=== PATIENT | female | born 1980 | race Caucasian/White ===

== ENCOUNTER 2018-12-21 17:33 | Emergency (ER) | payer SELFPAY ==
[~2018-12-21] VITALS: Ht 170.2 cm; Wt 73.0 kg
[2018-12-21 17:34] VITALS: BP 116/77
[2018-12-21] MEDS ORDERED: HYDROCODONE/ACETAMINOPHEN 5/325MG TABLET PO ONE (18:00)
[2018-12-21] MEDS ORDERED: IBUPROFEN 600MG TABLET PO ONE (18:00)
== END 2018-12-21 20:00 | disposition left against medical advice (07) ==
LOC: ER 17:33
DX: M79.672 Pain in left foot (principal); M25.572 Pain in left ankle and joints of left foot; V03.99XA Pedestrian with other conveyance injured in collision with car, pick-up truck or van, unspecified whether traffic or nontraffic accident, initial encounter; Y93.55 Activity, bike riding; Y92.9 Unspecified place or not applicable
CPT/HCPCS: 73610; 73630; 99283

== ENCOUNTER 2019-03-30 22:39 | Emergency (ER) | payer OTHER ==
[~2019-03-30] VITALS: Ht 160 cm; Wt 68.0 kg
[2019-03-30] MEDS ORDERED: KETOROLAC 30MG/ML VIAL IM ONE (23:45)
[2019-03-31 00:53] VITALS: BP 141/87
== END 2019-03-31 00:54 | disposition home or self-care (01) ==
LOC: ER 22:39
DX: S60.221A Contusion of right hand, initial encounter (principal); W21.19XA Struck by other bat, racquet or club, initial encounter; Y93.9 Activity, unspecified; Y92.9 Unspecified place or not applicable
CPT/HCPCS: 73130; 96372; 99283; J1885

== ENCOUNTER 2021-06-30 21:15 | Inpatient (IN) | payer MEDICAID, OTHER ==
[~2021-06-30] VITALS: Ht 170.2 cm; Wt 90.7 kg
[2021-06-30] MEDS ORDERED: PREN1TAB78 PO (21:41)
[2021-06-30] MEDS ORDERED: ACETAMINOPHEN 500MG TABLET PO PRN (22:00)
[2021-06-30] MEDS ORDERED: ONDANSETRON HCL 4MG/2ML INJ IV PRN (22:00)
[2021-06-30] MEDS: LACTATED RINGERS 1,000 ML IV SCH (23:00)
[2021-06-30] MEDS ORDERED: LABETALOL HCL 5MG/ML VIAL 20ML IV PRN ×3 (23:00)
[2021-06-30] MEDS ORDERED: CEFAZOLIN 1000MG PREMIX 50 ML IV SCH (23:00)
[2021-06-30] MEDS ORDERED: MAGNESIUM 4 G PREMIX 100 ML IV ONE (23:00)
[2021-06-30] MEDS ORDERED: BUTORPHANOL TARTRATE 2 MG/ML VIAL IV ONE (23:00)
[2021-06-30] MEDS ORDERED: HYDRALAZINE 20MG/ML VIAL IV PRN (23:45)
[2021-06-30 23:48] LABS: BASOPHILS % 0.6 % (0.0-2.0); HEMATOCRIT. 32.1 % (36.0-48.0); LYMPHOCYTES % 14.8 % (20.0-50.0); MEAN CORPUSCULAR HEMOGLOBIN 21.4 pg (28.0-32.0); MEAN CORPUSCULAR VOLUME 68.8 fL (81.0-99.0); MEAN PLATELET VOLUME 10.7 fl (7.4-10.4); MONOCYTES % 4.3 % (2.0-8.0); NEUTROPHILS % 79.3 % (40.0-76.0); PLATELET 355 x1000/uL (130-400); RED BLOOD CELL COUNT 4.67 mill/uL (4.2-5.4); RED CELL DISTRIBUTION WIDTH 20.7 % (11.6-14.6)
[2021-07-01 00:03] LABS: CLARITY URINE CLEAR (CLEAR); COLOR URINE DARK YELLOW (YELLOW); KETONES URINE NEGATIVE (NEGATIVE); LEUKOCYTE ESTERASE URINE TRACE (NEGATIVE); NITRITE URINE NEGATIVE (NEGATIVE); OCCULT BLOOD URINE TRACE (NEGATIVE); PROTEIN URINE 1+ (NEGATIVE); SPECIFIC GRAVITY URINE 1.022 (1.005-1.030)
[2021-07-01 00:05] LABS: D-DIMER 1.9 mg/L FEU (<0.50); INR 0.9; PARTIAL THROMBOPLASTIN TIME 26.1 sec (23.4-31.0); PROTHROMBIN TIME 9.6 sec (9.6-11.0)
[2021-07-01 00:14] LABS: CHLORIDE 106 mEq/L (98-107)
[2021-07-01 00:23] LABS: *BARBITURATES SCREEN URINE NEGATIVE (NEGATIVE); *BENZODIAZEPINES SCREEN URINE NEGATIVE (NEGATIVE); *COCAINE SCREEN URINE NEGATIVE (NEGATIVE); METHADONE URINE SCREEN NEGATIVE (NEGATIVE); OPIATES URINE SCREEN NEGATIVE (NEGATIVE); PHENCYCLIDINE URINE SCREEN NEGATIVE (NEGATIVE)
[2021-07-01 00:26] LABS: *AMPHETAMINES SCREEN URINE PRESUMTIVE POSITIVE (NEGATIVE)
[2021-07-01 00:27] LABS: CANNABINOID URINE SCREEN PRESUMTIVE POSITIVE (NEGATIVE)
[2021-07-01] MEDS: MAGNESIUM 20 G PREMIX (L & D) 500 ML IV SCH ×2 (00:47→10:38)
[2021-07-01] MEDS ORDERED: BUTORPHANOL TARTRATE 2 MG/ML VIAL IV PRN (01:30)
[2021-07-01] MEDS ORDERED: LIDOCAINE HCL 1% 30ML VIAL (10MG/ML) INFIL SCH (01:30)
[2021-07-01] MEDS ORDERED: NALOXONE HCL 0.4 MG/ML 1ML VIAL IM PRN (01:30)
[2021-07-01] MEDS ORDERED: METHYLERGONOVINE MALEATE 0.2 MG/ML IM PRN (01:30)
[2021-07-01 01:43] LABS: PLATELET ESTIMATE NORMAL
[2021-07-01] MEDS ORDERED: PENICILLIN G POTASSIUM 5 MMU in DEXT 5% WATER 100 ML IV SCH (02:00)
[2021-07-01 02:09] LABS: HEPATITIS B SURFACE ANTIGEN NEGATIVE
[2021-07-01] MEDS: LACTATED RINGERS 1,000 ML IV SCH ×3 (04:04→22:33)
[2021-07-01] MEDS: PENICILLIN G POTASSIUM 2.5 MMU in DEXTROSE 5% WATER 50 ML IV SCH ×4 (07:24→20:28)
[2021-07-01] MEDS ORDERED: LIDOCAINE HCL 2%/EPINEPHRINE 1:100,000 20 ML VIAL INFIL ONE (08:02)
[2021-07-01] MEDS ORDERED: DEXT 5%/LR + PITOCIN 20UNITS/L 1,000 ML IV SCH (08:15)
[2021-07-01 08:18] LABS: EOSINOPHILS % 0.3 % (0.0-5.0); HEMATOCRIT. 32.3 % (36.0-48.0); HEMOGLOBIN. 9.9 g/dL (12.0-16.0); LYMPHOCYTES % 13.4 % (20.0-50.0); MEAN CORPUSCULAR HEMOGLOBIN 21.2 pg (28.0-32.0); MEAN PLATELET VOLUME 10.1 fl (7.4-10.4); MONOCYTES % 4.7 % (2.0-8.0); NEUTROPHILS % 80.7 % (40.0-76.0); PLATELET 361 x1000/uL (130-400); RED BLOOD CELL COUNT 4.67 mill/uL (4.2-5.4); RED CELL DISTRIBUTION WIDTH 20.2 % (11.6-14.6)
[2021-07-01 08:25] LABS: CHLORIDE 105 mEq/L (98-107)
[2021-07-01 08:32] LABS: D-DIMER 2.07 mg/L FEU (<0.50); INR 0.8; PARTIAL THROMBOPLASTIN TIME 26.8 sec (23.4-31.0); PROTHROMBIN TIME 9.2 sec (9.6-11.0)
[2021-07-01] MEDS: DEXT 5%/LR + PITOCIN 20UNITS/L 1,000 ML IV SCH ×2 (08:33→08:35)
[2021-07-01 10:39] LABS: BASOPHILS % 0.9 % (0.0-2.0)
[2021-07-01] MEDS ORDERED: ROPIVACAINE HCL/PF EPIDURAL 200 ML EPI SCH (12:00)
[2021-07-01] MEDS ORDERED: MAGNESIUM 20 G PREMIX (L & D) 500 ML IV SCH (18:45)
[2021-07-01] MEDS ORDERED: HYDRALAZINE 20MG/ML VIAL IV PRN ×3 (22:30)
[2021-07-02] MEDS: DEXT 5%/LACTATED RINGERS 1,000 ML IV SCH (00:43)
[2021-07-02] MEDS: PENICILLIN G POTASSIUM 2.5 MMU in DEXTROSE 5% WATER 50 ML IV SCH ×2 (00:44→04:40)
[2021-07-02] MEDS ORDERED: ROPIVACAINE HCL/PF EPIDURAL 200 ML EPI SCH (01:15)
[2021-07-02] MEDS ORDERED: ROPIVACAINE HCL/PF 100ML 200 ML INFIL SCH (01:16)
[2021-07-02] MEDS: DEXT 5%/LR + PITOCIN 20UNITS/L 1,000 ML IV SCH (01:46)
[2021-07-02] MEDS ORDERED: ROPIVACAINE EPI ONE (02:07)
[2021-07-02] MEDS ORDERED: BUTORPHANOL TARTRATE 2 MG/ML VIAL IV PRN (04:45)
[2021-07-02] MEDS ORDERED: MORPHINE SULFATE/PF 1MG/ML 10ML AMP ONE (05:10)
[2021-07-02] MEDS ORDERED: RHO(D) IMMUNE GLOBULIN 300 MCG/SYR IM PRN (06:15)
[2021-07-02] MEDS ORDERED: NALOXONE HCL 0.4 MG/ML 1ML VIAL IV PRN (06:15)
[2021-07-02] MEDS ORDERED: DEXT 5%/LR + PITOCIN 20UNITS/L 1,000 ML IV SCH (06:15)
[2021-07-02] MEDS ORDERED: HYDROMORPHONE HCL/PF 2MG/ML CPJ IM PRN (06:15)
[2021-07-02] MEDS ORDERED: DIPHENHYDRAMINE 25MG CAPSULE PO PRN (06:15)
[2021-07-02] MEDS ORDERED: BISACODYL 10MG SUPP PR PRN (06:15)
[2021-07-02] MEDS ORDERED: PHENYLEPHRINE HCL 10 MG/ML 1ML (IV VIAL) IV ONE (06:25)
[2021-07-02] MEDS ORDERED: KETOROLAC 60MG/2ML VIAL IM ONE ×2 (06:27→18:24)
[2021-07-02 08:30] VITALS: BP 135/70
[2021-07-02 09:00] VITALS: BP 135/79
[2021-07-02] MEDS: PRENATAL VIT/FE FUMARATE/FA TABLET PO SCH (09:00)
[2021-07-02 16:05] VITALS: BP 124/72
[2021-07-02] MEDS ORDERED: CITRIC ACID/SODIUM CITRATE SOLN 30ML UDC PO NR (17:00)
[2021-07-02] MEDS ORDERED: MIDAZOLAM HCL 2 MG/2 ML VIAL ONE (17:05)
[2021-07-02] MEDS ORDERED: FENTANYL CITRATE/PF 50MCG/ML 2ML VIAL ONE ×2 (17:05→17:33)
[2021-07-02] MEDS ORDERED: CEFAZOLIN SODIUM 1000MG/VIAL ONE (17:23)
[2021-07-02] MEDS ORDERED: PROPOFOL 200MG/20ML VIAL IV ONE (17:41)
[2021-07-02] MEDS ORDERED: TETANUS, DIPHTHERIA, PERTUSSIS VAC/PF 0.5ML (>10YR OLD) IM ONE (21:00)
[2021-07-02] MEDS ORDERED: INFLUENZA VACCINE 05/PF 0.5 ML SYRINGE IM ONE (21:00)
[2021-07-02 22:00] VITALS: BP 147/83
[2021-07-02] MEDS: CLINDAMYCIN IN 0.9 % SOD CHLOR 50 ML IV SCH (22:08)
[2021-07-02] MEDS: GENTAMICIN 80MG PREMIX 100 ML IV SCH (23:07)
[2021-07-03] VITALS: BP 129/80
[2021-07-03] MEDS: AMPICILLIN 1,000 MG in SODIUM CHLORIDE 0.9% 50 ML IV SCH ×4 (03:00→20:48)
[2021-07-03] MEDS: CLINDAMYCIN IN 0.9 % SOD CHLOR 50 ML IV SCH ×3 (05:14→22:20)
[2021-07-03 05:34] VITALS: BP 115/62
[2021-07-03] MEDS: GENTAMICIN 80MG PREMIX 100 ML IV SCH ×3 (06:45→21:28)
[2021-07-03 07:45] LABS: BASOPHILS % 0.4 % (0.0-2.0); EOSINOPHILS % 0.9 % (0.0-5.0); HEMATOCRIT. 27.5 % (36.0-48.0); HEMOGLOBIN. 8.5 g/dL (12.0-16.0); LYMPHOCYTES % 15.7 % (20.0-50.0); MEAN CORPUSCULAR HEMOGLOBIN 21.5 pg (28.0-32.0); MEAN CORPUSCULAR VOLUME 69.2 fL (81.0-99.0); MEAN PLATELET VOLUME 9.5 fl (7.4-10.4); MONOCYTES % 4.2 % (2.0-8.0); NEUTROPHILS % 78.8 % (40.0-76.0); PLATELET 387 x1000/uL (130-400); RED BLOOD CELL COUNT 3.97 mill/uL (4.2-5.4); RED CELL DISTRIBUTION WIDTH 21.3 % (11.6-14.6)
[2021-07-03 08:00] VITALS: BP 144/81
[2021-07-03] MEDS: KETOROLAC 30MG/ML VIAL IV PRN (08:56)
[2021-07-03] MEDS: FERROUS SULFATE 325MG TABLET PO SCH ×3 (08:57→17:26)
[2021-07-03] MEDS: PRENATAL VIT/FE FUMARATE/FA TABLET PO SCH (08:57)
[2021-07-03 16:00] VITALS: BP 133/72
[2021-07-03] MEDS: IBUPROFEN 800MG TABLET PO PRN (17:26)
[2021-07-03 19:40] VITALS: BP 128/74
[2021-07-04] VITALS (7 sets, daily range): BP systolic 133–156; BP diastolic 77–91
[2021-07-04] MEDS: AMPICILLIN 1,000 MG in SODIUM CHLORIDE 0.9% 50 ML IV SCH ×4 (02:30→21:15)
[2021-07-04] MEDS: IBUPROFEN 800MG TABLET PO PRN ×3 (02:49→15:31)
[2021-07-04] MEDS: GENTAMICIN 80MG PREMIX 100 ML IV SCH ×3 (05:24→21:55)
[2021-07-04] MEDS: CLINDAMYCIN IN 0.9 % SOD CHLOR 50 ML IV SCH ×3 (06:09→22:44)
[2021-07-04 08:31] LABS: CHLORIDE 107 mEq/L (98-107)
[2021-07-04 08:49] LABS: GENTAMICIN TROUGH 3.6 ug/mL (<2.0)
[2021-07-04] MEDS: FERROUS SULFATE 325MG TABLET PO SCH ×2 (09:20→12:23)
[2021-07-04] MEDS: PRENATAL VIT/FE FUMARATE/FA TABLET PO SCH (09:20)
[2021-07-04] MEDS ORDERED: BUTORPHANOL TARTRATE 2 MG/ML VIAL IV NR (17:15)
[2021-07-04] MEDS ORDERED: LIDOCAINE HCL/EPINEPHRINE 1%-EPI 1:100,000 20 ML VIAL INFIL NR (17:15)
[2021-07-05] MEDS: AMPICILLIN 1,000 MG in SODIUM CHLORIDE 0.9% 50 ML IV SCH ×4 (03:10→21:21)
[2021-07-05 04:00] VITALS: BP 134/89
[2021-07-05] MEDS: IBUPROFEN 800MG TABLET PO PRN ×2 (05:17→21:17)
[2021-07-05] MEDS: GENTAMICIN 80MG PREMIX 100 ML IV SCH ×3 (05:23→23:12)
[2021-07-05] MEDS: CLINDAMYCIN IN 0.9 % SOD CHLOR 50 ML IV SCH ×3 (06:07→22:14)
[2021-07-05 08:00] VITALS: BP 134/91
[2021-07-05] MEDS: FERROUS SULFATE 325MG TABLET PO SCH ×3 (09:42→18:15)
[2021-07-05] MEDS: PRENATAL VIT/FE FUMARATE/FA TABLET PO SCH (09:42)
[2021-07-05] MEDS: KETOROLAC 30MG/ML VIAL IV PRN (10:35)
[2021-07-05 14:42] LABS: CHLORIDE 105 mEq/L (98-107)
[2021-07-05 14:48] LABS: GENTAMICIN RANDOM 0.5 ug/mL
[2021-07-05 16:00] VITALS: BP 143/89
[2021-07-05] MEDS: LACTATED RINGERS 1,000 ML IV SCH (16:10)
[2021-07-05 19:30] VITALS: BP 135/78
[2021-07-05] MEDS ORDERED: IBUP-2030 PO (21:19)
[2021-07-06] MEDS: AMPICILLIN 1,000 MG in SODIUM CHLORIDE 0.9% 50 ML IV SCH ×3 (03:44→17:32)
[2021-07-06 04:00] VITALS: BP 134/83
[2021-07-06] MEDS: CLINDAMYCIN IN 0.9 % SOD CHLOR 50 ML IV SCH ×3 (06:20→20:56)
[2021-07-06] MEDS: GENTAMICIN 80MG PREMIX 100 ML IV SCH ×2 (07:00→15:03)
[2021-07-06] MEDS ORDERED: CEPH500T MT (07:01)
[2021-07-06 07:41] VITALS: BP 135/81
[2021-07-06] MEDS: PRENATAL VIT/FE FUMARATE/FA TABLET PO SCH (08:37)
[2021-07-06] MEDS: FERROUS SULFATE 325MG TABLET PO SCH ×2 (08:38→13:02)
[2021-07-06] MEDS: IBUPROFEN 800MG TABLET PO PRN (08:41)
[2021-07-06 16:05] VITALS: BP 123/80
[2021-07-06] MEDS: DEXT 5%/LACTATED RINGERS 1,000 ML IV SCH (19:11)
[2021-07-06 20:00] VITALS: BP 138/97
[2021-07-06] MEDS: KETOROLAC 30MG/ML VIAL IV PRN (21:06)
[2021-07-07] VITALS: BP 138/79
[2021-07-07 04:00] VITALS: BP 124/69
[2021-07-07] MEDS: CLINDAMYCIN IN 0.9 % SOD CHLOR 50 ML IV SCH ×2 (04:57→14:48)
[2021-07-07] MEDS: IBUPROFEN 400MG TABLET PO PRN ×2 (07:30→17:52)
[2021-07-07 08:00] VITALS: BP 150/73
[2021-07-07] MEDS: FERROUS SULFATE 325MG TABLET PO SCH ×4 (09:23→17:51)
[2021-07-07] MEDS: PRENATAL VIT/FE FUMARATE/FA TABLET PO SCH (09:23)
[2021-07-07] MEDS: IBUPROFEN 800MG TABLET PO PRN (11:59)
[2021-07-07 12:00] VITALS: BP 148/94
[2021-07-07] MEDS: DEXT 5%/LACTATED RINGERS 1,000 ML IV SCH ×2 (13:35→16:45)
[2021-07-07 16:00] VITALS: BP 136/76
[2021-07-08] VITALS: BP 134/71
[2021-07-08] MEDS: IBUPROFEN 400MG TABLET PO PRN ×2 (03:06→11:52)
[2021-07-08 08:00] VITALS: BP 138/93
[2021-07-08] MEDS: FERROUS SULFATE 325MG TABLET PO SCH ×3 (08:14→17:04)
[2021-07-08] MEDS: PRENATAL VIT/FE FUMARATE/FA TABLET PO SCH (08:14)
[2021-07-08] MEDS: DEXT 5%/LACTATED RINGERS 1,000 ML IV SCH ×2 (08:15→17:04)
[2021-07-08] MEDS: IBUPROFEN 800MG TABLET PO PRN (08:18)
[2021-07-08 11:58] VITALS: BP 133/82
[2021-07-08 16:00] VITALS: BP 157/89
[2021-07-08 16:10] LABS: BASOPHILS % 0.6 % (0.0-2.0); EOSINOPHILS % 2.2 % (0.0-5.0); HEMATOCRIT. 27.7 % (36.0-48.0); HEMOGLOBIN. 8.6 g/dL (12.0-16.0); LYMPHOCYTES % 19.7 % (20.0-50.0); MEAN CORPUSCULAR HEMOGLOBIN 22.6 pg (28.0-32.0); MEAN CORPUSCULAR VOLUME 72.7 fL (81.0-99.0); MEAN PLATELET VOLUME 8.2 fl (7.4-10.4); MONOCYTES % 5.9 % (2.0-8.0); NEUTROPHILS % 71.6 % (40.0-76.0); PLATELET 658 x1000/uL (130-400); RED BLOOD CELL COUNT 3.81 mill/uL (4.2-5.4); RED CELL DISTRIBUTION WIDTH 22.6 % (11.6-14.6)
[2021-07-08 16:12] LABS: CHLORIDE 108 mEq/L (98-107)
[2021-07-08 20:00] VITALS: BP 131/74
[2021-07-09] VITALS (7 sets, daily range): BP systolic 133–154; BP diastolic 72–86
[2021-07-09] MEDS: DEXT 5%/LACTATED RINGERS 1,000 ML IV SCH ×3 (02:02→16:45)
[2021-07-09] MEDS: FERROUS SULFATE 325MG TABLET PO SCH ×4 (05:39→17:04)
[2021-07-09] MEDS: IBUPROFEN 400MG TABLET PO PRN (05:39)
[2021-07-09] MEDS: PRENATAL VIT/FE FUMARATE/FA TABLET PO SCH (08:40)
== END 2021-07-09 20:20 | disposition home health service (06) | DRG 540 ==
LOC: OBSVTOIN 21:15 → 8 EST LDRP 21:15 → 8EST 07-02 08:53 → 6EST 07-06 18:06
PROVIDERS: ADMIT Obstetrics & Gynecology; ATTEND Obstetrics & Gynecology
PROC: 10D00Z1 Extraction of Products of Conception, Low, Open Approach (ICD-10-PCS; principal; 2021-07-02)
PROC: 0H97XZZ Drainage of Abdomen Skin, External Approach (ICD-10-PCS; 2021-07-04)
DX: O62.2 Other uterine inertia (principal); O15.1 Eclampsia complicating labor; A41.9 Sepsis, unspecified organism; O69.81X0 Labor and delivery complicated by cord around neck, without compression, not applicable or unspecified; O77.0 Labor and delivery complicated by meconium in amniotic fluid; O86.04 Sepsis following an obstetrical procedure; O99.324 Drug use complicating childbirth; O41.03X0 Oligohydramnios, third trimester, not applicable or unspecified; O13.4 Gestational [pregnancy-induced] hypertension without significant proteinuria, complicating childbirth; O9A.22 Injury, poisoning and certain other consequences of external causes complicating childbirth; T81.30XA Disruption of wound, unspecified, initial encounter; F15.10 Other stimulant abuse, uncomplicated; F12.10 Cannabis abuse, uncomplicated; Y83.8 Other surgical procedures as the cause of abnormal reaction of the patient, or of later complication, without mention of misadventure at the time of the procedure; O90.81 Anemia of the puerperium; Z20.822 Contact with and (suspected) exposure to COVID-19; D64.9 Anemia, unspecified; Z79.1 Long term (current) use of non-steroidal anti-inflammatories (NSAID); Z3A.39 39 weeks gestation of pregnancy; Z37.0 Single live birth; Z90.49 Acquired absence of other specified parts of digestive tract; Z79.2 Long term (current) use of antibiotics; Z79.899 Other long term (current) drug therapy; Y92.89 Other specified places as the place of occurrence of the external cause; Z59.00 Homelessness unspecified
CPT/HCPCS: 36415; 76805; 76818; 80048; 80053; 80170; 80305; 80349; 81003; 83735; 84550; 85025; 85379; 85384; 86592; 86703; 86762; 86850; 86900; 87340; 87426; 88307; 90686; 90715; 99281; G0378; J0290; J0360; J0595; J0690; J1580; J1885; J2250; J2274; J2370; J2540; J2590; J2704; J2795; J3010; J3475; J3490; J7060; J7120; J7121; Q0163; A4315

== ENCOUNTER 2021-08-12 20:51 | Emergency (ER) | payer OTHER ==
[~2021-08-12] VITALS: Ht 167.6 cm; Wt 100.3 kg
[~2021-08-12 20:51] MED LIST: CEPH500T MT; IBUP-2030 PO; PREN1TAB78 PO
[2021-08-12 21:07] VITALS: BP 166/76
[2021-08-12 22:39] LABS: CLARITY URINE CLEAR (CLEAR); COLOR URINE YELLOW (YELLOW); KETONES URINE TRACE (NEGATIVE); LEUKOCYTE ESTERASE URINE TRACE (NEGATIVE); NITRITE URINE NEGATIVE (NEGATIVE); OCCULT BLOOD URINE NEGATIVE (NEGATIVE); PROTEIN URINE NEGATIVE (NEGATIVE); SPECIFIC GRAVITY URINE 1.028 (1.005-1.030); UROBILINOGEN URINE 0.2 E.U./dL (0.2-1.0)
[2021-08-12 22:42] LABS: BASOPHILS % 0.7 % (0.0-2.0); EOSINOPHILS % 1.9 % (0.0-5.0); HEMATOCRIT. 36.2 % (36.0-48.0); LYMPHOCYTES % 24.2 % (20.0-50.0); MEAN CORPUSCULAR HEMOGLOBIN 27.5 pg (28.0-32.0); MEAN CORPUSCULAR VOLUME 83.4 fL (81.0-99.0); MEAN PLATELET VOLUME 7.9 fl (7.4-10.4); MONOCYTES % 5.4 % (2.0-8.0); NEUTROPHILS % 67.8 % (40.0-76.0); PLATELET 310 x1000/uL (130-400); RED BLOOD CELL COUNT 4.34 mill/uL (4.2-5.4); RED CELL DISTRIBUTION WIDTH 23.6 % (11.6-14.6)
[2021-08-12 22:44] LABS: CHLORIDE 106 mEq/L (98-107)
[2021-08-12 22:53] LABS: HCG SCREEN NEGATIVE
[2021-08-12 22:55] LABS: PLATELET ESTIMATE NORMAL
[2021-08-12] MEDS ORDERED: CEPH500T MT (23:00)
[2021-08-12] MEDS ORDERED: CEFTRIAXONE SODIUM 500 MG/VIAL IM ONE (23:00)
== END 2021-08-12 23:06 | disposition home or self-care (01) ==
LOC: ER 20:51
DX: L03.311 Cellulitis of abdominal wall (principal); Z98.890 Other specified postprocedural states
CPT/HCPCS: 36415; 80053; 81003; 84703; 85025; 96372; 99283; J0696; Z7610

== ENCOUNTER 2022-01-02 14:54 | Emergency (ER) | payer OTHER ==
[~2022-01-02] VITALS: Ht 170.2 cm; Wt 91.0 kg
[2022-01-02 14:58] VITALS: BP 158/78
[2022-01-02] MEDS ORDERED: TRAZ-251 MT (15:04)
[2022-01-02] MEDS ORDERED: ESCI10TA MT (15:04)
== END 2022-01-02 15:12 ==
LOC: ER 14:58
DX: Z02.79 Encounter for issue of other medical certificate (principal); Z76.0 Encounter for issue of repeat prescription; F41.9 Anxiety disorder, unspecified; Z98.890 Other specified postprocedural states
CPT/HCPCS: 99283

== ENCOUNTER 2022-09-16 06:29 | Emergency (ER) | payer MEDICAID, OTHER ==
[~2022-09-16] VITALS: Ht 162.6 cm; Wt 95.0 kg
[~2022-09-16 06:29] MED LIST changes: +ESCI10TA MT; +TRAZ-251 MT
[2022-09-16] MEDS ORDERED: FAMOTIDINE 20MG/2ML VIAL IV STA (06:33)
[2022-09-16] MEDS ORDERED: ONDANSETRON HCL 4MG/2ML INJ IV STA (06:33)
[2022-09-16] MEDS ORDERED: MORPHINE SULFATE 4 MG/ML CPJ (NOT FOR IM USE) IV STA (06:33)
[2022-09-16] MEDS ORDERED: SODIUM CHLORIDE 0.9% 1,000 ML IV ONE (06:45)
[2022-09-16 07:08] LABS: BASOPHILS % 0.5 % (0.0-2.0); EOSINOPHILS % 0.9 % (0.0-5.0); HEMATOCRIT. 33.6 % (36.0-48.0); LYMPHOCYTES % 21.4 % (20.0-50.0); MEAN CORPUSCULAR HEMOGLOBIN 25.7 pg (28.0-32.0); MEAN CORPUSCULAR VOLUME 78.8 fL (81.0-99.0); MEAN PLATELET VOLUME 8.7 fl (7.4-10.4); MONOCYTES % 5.5 % (2.0-8.0); NEUTROPHILS % 71.7 % (40.0-76.0); PLATELET 342 x1000/uL (130-400); RED BLOOD CELL COUNT 4.26 mill/uL (4.2-5.4); RED CELL DISTRIBUTION WIDTH 15.2 % (11.6-14.6)
[2022-09-16 07:14] LABS: CHLORIDE 108 mEq/L (98-107)
[2022-09-16 07:16] LABS: PROTHROMBIN TIME 10.9 sec (9.6-11.0)
[2022-09-16 07:44] LABS: HCG SCREEN NEGATIVE
[2022-09-16 08:13] LABS: CLARITY URINE CLOUDY (CLEAR); COLOR URINE ORANGE (YELLOW); KETONES URINE 1+ (NEGATIVE); LEUKOCYTE ESTERASE URINE TRACE (NEGATIVE); NITRITE URINE NEGATIVE (NEGATIVE); OCCULT BLOOD URINE 3+ (NEGATIVE); PROTEIN URINE 2+ (NEGATIVE); SPECIFIC GRAVITY URINE 1.024 (1.005-1.030)
[2022-09-16] MEDS ORDERED: ONDA4TAB50 PO (09:08)
[2022-09-16] MEDS ORDERED: TOPUD PO (09:08)
[2022-09-16] MEDS ORDERED: NITR100C PO (09:14)
[2022-09-16 10:07] VITALS: BP 132/81
== END 2022-09-16 10:09 | disposition home or self-care (01) ==
LOC: ER 06:29
DX: R10.32 Left lower quadrant pain (principal); Z98.890 Other specified postprocedural states
CPT/HCPCS: 36415; 74176; 80053; 81003; 83690; 84703; 85025; 85610; 93005; 96374; 96375; 99285; J2270; J2405; J3490; J7030